=== PATIENT | female | born 1975 | race Caucasian/White ===

== ENCOUNTER 2023-01-11 12:32 | Outpatient (CLI) | payer BC ==
[~2023-01-11 12:32] MED LIST: Magnevist 469MG/ML 20 ML VIAL ONE
== END 2023-01-11 12:33 | disposition home or self-care (01) ==
LOC: CSHMRI 12:32
PROVIDERS: ATTEND Surgery
DX: M47.22 Other spondylosis with radiculopathy, cervical region (principal); M50.121 Cervical disc disorder at C4-C5 level with radiculopathy; M54.6 Pain in thoracic spine; G50.8 Other disorders of trigeminal nerve; Z98.890 Other specified postprocedural states; G95.0 Syringomyelia and syringobulbia
CPT/HCPCS: 70553; 72050; 72141; 72146; A9579